=== PATIENT | male | born 1950 | race Caucasian/White ===

== ENCOUNTER 2022-03-14 15:16 | Emergency (ER) | payer OTHER ==
[2022-03-14] MEDS ORDERED: dexAMETHasone 10 MG/ML VIAL ONE (15:55)
[2022-03-14] MEDS ORDERED: KETOROLAC 30 MG/ML INJ ONE (15:55)
--- NOTE | 2022-03-14 16:35 | ER ---
Nurse's Notes [facility] Name: Toy Fajardo Jr Age: 71 yrs Sex: Male : 1950 Arrival Date: 03/14/2022 Time: 15:17 Bed 20 Private MD: Diagnosis: Headache Presentation: 03/14 15:35 Chief complaint: Patient states: Sent to ER from [place] for suggested MRI. Pt reporting ld1 bad headaches "feels like needles in the back of my head" since Monday. Coronavirus screen: At this time, the client does not indicate any symptoms associated with coronavirus-19. Ebola Screen: No symptoms or risks identified at this time. Initial Sepsis Screen: Does the patient meet any 2 criteria? No. Patient's initial sepsis screen is negative. Does the patient have a suspected source of infection? No. Patient's initial sepsis screen is negative. Risk Assessment: Do you want to hurt yourself or someone else? Patient reports no desire to harm self or others. Onset of symptoms was March 14, 2022. 15:35 Method Of Arrival: Ambulatory ld1 15:35 Acuity: BETY 3 ld1 Triage Assessment: 15:36 Headache History: Denies prior headaches. General: Appears in no apparent distress. ld1 uncomfortable, Behavior is calm, cooperative, appropriate for age. Pain: Complains of pain in scalp Pain currently is 0 out of 10 on a pain scale. at worst was 9 out of 10 on a pain scale. Quality of pain is described as sharp, shooting, stabbing, tingling, Pain began suddenly, 2-3 days ago. Is intermittent, Also complains of sleeplessness. EENT: No signs and/or symptoms were reported regarding the EENT system. Neuro: Level of Consciousness is awake, alert, obeys commands, Oriented to person, place, time, situation, Appropriate for age. Cardiovascular: Capillary refill < 3 seconds Patient's skin is warm and dry. Respiratory: Airway is patent Respiratory effort is even, unlabored. GI: Abdomen is flat, non-distended. : No signs and/or symptoms were reported regarding the genitourinary system. Derm: No signs and/or symptoms reported regarding the dermatologic system. Musculoskeletal: No signs and/or symptoms reported regarding the musculoskeletal system. Historical: - Allergies: 15:36 No Known Allergies; ld1 - Home Meds: 15:36 lisinopril 2.5 mg Oral tab 1 tab once daily [Active]; atorvastatin 20 mg oral tab 1 tab ld1 once daily [Active]; tamsulosin 0.4 mg oral cap 1 cap once daily [Active]; - PMHx: 15:36 Hypertensive disorder; BPH; Hypercholesterolemia; ld1 - PSHx: 15:36 None; ld1 - Immunization history:: Adult Immunizations up to date, Client reports receiving the 2nd dose of the Covid vaccine. - Social history:: Smoking status: Patient denies any tobacco usage or history of. Patient/guardian denies using alcohol. - Family history:: not pertinent. - Hospitalizations: : No recent hospitalization is reported. Screenin:06 Abuse screen: Denies threats or abuse. Nutritional screening: No deficits noted. jd3 Tuberculosis screening: No symptoms or risk factors identified. Fall Risk IV access (20 points). Ambulatory Aid- None/Bed Rest/Nurse Assist (0 pts). Gait- Normal/Bed Rest/Wheelchair (0 pts) Mental Status- Oriented to own ability (0 pts). Total Metzger Fall Scale indicates No Risk (0-24 pts). Assessment: 16:05 General: Appears in no apparent distress. comfortable, Behavior is calm, cooperative, jd3 appropriate for age. Pain: Complains of pain in back of head Quality of pain is described as sharp, shooting. Neuro: Simpson Agitation-Sedation Scale (RASS): 0 - Alert and Calm Level of Consciousness is awake, alert, obeys commands, Oriented to person, place, time, situation, Denies weakness blurred vision dizziness, paresthesias numbness photophobia. Cardiovascular: Capillary refill < 3 seconds Patient's skin is warm and dry. Respiratory: Airway is patent Respiratory effort is even, unlabored, Respiratory pattern is regular, symmetrical. GI: No signs and/or symptoms were reported involving the gastrointestinal system. Patient currently denies diarrhea, nausea, vomiting. : No signs and/or symptoms were reported regarding the genitourinary system. EENT: No signs and/or symptoms were reported regarding the EENT system. Derm: Skin is intact, Skin is dry, Skin is normal, Skin temperature is warm. Musculoskeletal: Circulation, motion, and sensation intact. Range of motion: intact in all extremities. 16:47 Reassessment: Patient appears in no apparent distress at this time. Patient and/or jd3 family updated on plan of care and expected duration. Pain level reassessed. Patient is alert, oriented x 3, equal unlabored respirations, skin warm/dry/pink. Patient states feeling better. Vital Signs: 15:35 BP 156 / 73; Pulse 59; Resp 18; Temp 97.9(TE); Pulse Ox 99% on R/A; Weight 81.19 kg; ld1 Height 5 ft. 9 in. (175.26 cm); Pain 0/10; 16:47 BP 126 / 73; Pulse 58; Resp 16; Pulse Ox 99% on R/A; jd3 15:35 Body Mass Index 26.43 (81.19 kg, 175.26 cm) ld1 [place] Coma Score: 16:30 Eye Response: spontaneous(4). Verbal Response: oriented(5). Motor Response: obeys rn commands(6). Total: 15. ED Course: 15:17 Patient arrived in ED. am2 15:30 David Burgos MD is Attending Physician. rn 15:36 Triage completed. ld1 15:36 Arm band placed on right wrist. ld1 15:46 Mckinley Salvador RN is Primary Nurse. jd3 15:55 Inserted saline lock: 20 gauge in left antecubital area, using aseptic technique. jd3 16:06 Patient has correct armband on for positive identification. Bed in low position. Call jd3 light in reach. Side rails up X 1. Pulse ox on. NIBP on. 16:35 Octavio Rutherford MD is Referral Physician. rn 16:47 No provider procedures requiring assistance completed. IV discontinued, intact, jd3 bleeding controlled, No redness/swelling at site. Pressure dressing applied. Administered Medications: 16:05 Drug: Decadron - Dexamethasone 10 mg Route: IVP; Site: left antecubital; jd3 16:48 Follow up: Response: No adverse reaction jd3 16:05 Drug: Ketorolac 15 mg Route: IVP; Site: left antecubital; jd3 16:48 Follow up: Response: No adverse reaction jd3 Medication: 16:06 VIS not applicable for this client. jd3 Outcome: 16:35 Discharge ordered by . rn 16:47 Discharged to home ambulatory. jd3 16:47 Condition: stable 16:47 Discharge instructions given to patient, Instructed on discharge instructions, follow up and referral plans. medication usage, Demonstrated understanding of instructions, follow-up care, medications. 16:47 Patient left the ED. jd3 Signatures: David Burgos MD MD rn Moreno, Amanda am2 Davies, Jonathon, RN RN jd3 Mercedes Light RN RN ld1
--- NOTE | 2022-03-14 16:35 | EDPHYS ---
Physician Documentation [facility] Name: Toy Fajardo Jr Age: 71 yrs Sex: Male : 1950 Arrival Date: 03/14/2022 Time: 15:17 Bed 20 Private MD: ED Physician David Burgos HPI: 03/14 16:30 This 71 yrs old Male presents to ER via Ambulatory with complaints of Headache. rn 16:30 The patient complains of pain to the left side of the back of head and right side of rn the back of head. The patient describes the headache as sharp/stabbing. Onset: The symptoms/episode began/occurred 3 day(s) ago. Associated signs and symptoms: Pertinent positives: This patient does not have any pertinent positive signs or symptoms associated with a headache. Pertinent negatives: altered mental status, fever, neck stiffness, paresthesias, Photophobia sinus congestion, sinus tenderness, vision changes, vision loss, vomiting, weakness, vertigo. Severity of symptoms: At its worst the pain was moderate, in the emergency department the pain has improved. The symptoms are alleviated by nothing. the symptoms are aggravated by nothing. The patient has not experienced similar symptoms in the past. The patient has been recently seen by a physician:. Seen at [facility] for this. neg ct head, new intermittent/sharp/stabbing post headache, lasts for seconds, no injury. Historical: - Allergies: 15:36 No Known Allergies; ld1 - Home Meds: 15:36 lisinopril 2.5 mg Oral tab 1 tab once daily [Active]; atorvastatin 20 mg oral tab 1 tab ld1 once daily [Active]; tamsulosin 0.4 mg oral cap 1 cap once daily [Active]; - PMHx: 15:36 Hypertensive disorder; BPH; Hypercholesterolemia; ld1 - PSHx: 15:36 None; ld1 - Immunization history:: Adult Immunizations up to date, Client reports receiving the 2nd dose of the Covid vaccine. - Social history:: Smoking status: Patient denies any tobacco usage or history of. Patient/guardian denies using alcohol. - Family history:: not pertinent. - Hospitalizations: : No recent hospitalization is reported. ROS: 16:30 Constitutional: Negative for fever, chills, and weight loss, Eyes: Negative for injury, rn pain, redness, and discharge, Neck: Negative for injury, pain, and swelling, Cardiovascular: Negative for chest pain, palpitations, and edema, Respiratory: Negative for shortness of breath, cough, wheezing, and pleuritic chest pain, Abdomen/GI: Negative for abdominal pain, nausea, vomiting, diarrhea, and constipation, Back: Negative for injury and pain, MS/Extremity: Negative for injury and deformity, Skin: Negative for injury, rash, and discoloration, Neuro: Negative for weakness, numbness, tingling, and seizure. Exam: 16:30 Constitutional: This is a well developed, well nourished patient who is awake, alert, rn and in no acute distress. Head/Face: Normocephalic, atraumatic. Eyes: Pupils equal round and reactive to light, extra-ocular motions intact. Lids and lashes normal. Conjunctiva and sclera are non-icteric and not injected. Cornea within normal limits. Periorbital areas with no swelling, redness, or edema. Neck: Trachea midline, no thyromegaly or masses palpated, and no cervical lymphadenopathy. Supple, full range of motion without nuchal rigidity, or vertebral point tenderness. No Meningismus. Cardiovascular: Regular rate and rhythm. No pulse deficits. Respiratory: No increased work of breathing, no retractions or nasal flaring. Abdomen/GI: Soft, non-tender Skin: Warm, dry Neuro: Awake and alert, GCS 15, oriented to person, place, time, and situation. Cranial nerves II-XII grossly intact. Motor strength 5/5 in all extremities. Sensory grossly intact. Cerebellar exam normal. Normal gait. Vital Signs: 15:35 BP 156 / 73; Pulse 59; Resp 18; Temp 97.9(TE); Pulse Ox 99% on R/A; Weight 81.19 kg; ld1 Height 5 ft. 9 in. (175.26 cm); Pain 0/10; 16:47 BP 126 / 73; Pulse 58; Resp 16; Pulse Ox 99% on R/A; jd3 15:35 Body Mass Index 26.43 (81.19 kg, 175.26 cm) ld1 [place] Coma Score: 16:30 Eye Response: spontaneous(4). Verbal Response: oriented(5). Motor Response: obeys rn commands(6). Total: 15. MDM: 15:30 Patient medically screened. rn 16:30 Differential diagnosis: hypertensive headache, migraine, neoplasm, tension headache, rn trigeminal neuralgia, uremia, vasomotor headache. Data reviewed: vital signs, nurses notes, diagnostic data from outside facility, and as a result, I will discharge patient. Counseling: I had a detailed discussion with the patient and/or guardian regarding: the historical points, exam findings, and any diagnostic results supporting the discharge/admit diagnosis, radiology results, the need for outpatient follow up, to return to the emergency department if symptoms worsen or persist or if there are any questions or concerns that arise at home. Response to treatment: the patient's symptoms have mildly improved after treatment, and as a result, I will discharge patient. Special discussion: I discussed with the patient/guardian in detail that at this point there is no indication for admission to the hospital. It is understood, however, that if the symptoms persist or worsen the patient needs to return immediately for re-evaluation. Based on the history and exam findings, there is no indication for further emergent testing or inpatient evaluation. I discussed with the patient/guardian the need to see the neurologist for further evaluation of the symptoms. ED course: Pt brought CT head report, no acute findings, pain is intermittent and lasts for seconds, normal neuro exam, will dc home with neuro f/u, steroids and gabapentin which he has tolerated in past. . 03/14 15:42 Order name: IV Start; Complete Time: 15:51 rn Administered Medications: 16:05 Drug: Decadron - Dexamethasone 10 mg Route: IVP; Site: left antecubital; jd3 16:48 Follow up: Response: No adverse reaction jd3 16:05 Drug: Ketorolac 15 mg Route: IVP; Site: left antecubital; jd3 16:48 Follow up: Response: No adverse reaction jd3 Disposition Summary: 03/14/22 16:35 Discharge Ordered Location: Home rn Problem: new rn Symptoms: have improved rn Condition: Stable rn Diagnosis - Headache rn Followup: rn - With: Octavio Rutherford MD - When: As needed - Reason: Recheck today's complaints, Re-evaluation by your physician Discharge Instructions: - Discharge Summary Sheet rn - General Headache Without Cause rn Forms: - Medication Reconciliation Form rn - Thank You Letter rn - Antibiotic utilization review rn - Prescription Opioid Use rn Prescriptions: - gabapentin 100 mg Oral capsule - take 3 capsule by ORAL route once daily; 45 capsule; Refills: 0, Product rn Selection Permitted - Medrol (Maurice) 4 mg Oral Tablets, Dose Pack - take 1 tablet by ORAL route as directed - follow package instructions; 1 rn packet; Refills: 0, Product Selection Permitted Signatures: David Burgos MD MD rn Davies, Jonathon RN RN jd3 Mercedes Light RN RN ld1
[2022-03-14 18:25] VITALS: TEMP 97.9; O2SAT 99
[2022-03-14 18:26] VITALS: BP 126/73
== END 2022-03-14 16:47 | disposition home or self-care (01) ==
LOC: ER 15:16
DX: R51.9 Headache, unspecified (principal); I10 Essential (primary) hypertension
CPT/HCPCS: 96375; 96374; 99283; J1100